=== PATIENT | female | born 1985 | race Caucasian/White ===

== ENCOUNTER 2019-01-16 17:26 | Emergency (ER) | payer MEDICAID ==
[~2019-01-16] VITALS: Ht 172.7 cm; Wt 112.1 kg
[2019-01-16 17:33] VITALS: BP 159/99
[2019-01-16] MEDS ORDERED: HTN MED (17:40)
[2019-01-16] MEDS ORDERED: KETOROLAC 30 MG/1 ML ONE (17:52)
[2019-01-16] MEDS ORDERED: KETOROLAC 30 MG/1 ML IM ONE (18:00)
== END 2019-01-16 18:35 | disposition home or self-care (01) ==
LOC: ED 18:03
DX: M25.531 Pain in right wrist (principal); R20.2 Paresthesia of skin; M19.90 Unspecified osteoarthritis, unspecified site; I10 Essential (primary) hypertension; F17.200 Nicotine dependence, unspecified, uncomplicated
CPT/HCPCS: 29125; 73110; 73130; 96372; 99283; J1885; J7512

== ENCOUNTER 2019-07-16 13:39 | Emergency (ER) | payer MEDICAID ==
[~2019-07-16] VITALS: Ht 172.7 cm; Wt 105.0 kg
[~2019-07-16 13:39] MED LIST: HTN MED
[2019-07-16 13:43] VITALS: BP 171/110
[2019-07-16] MEDS ORDERED: KETOROLAC 30 MG/1 ML IM ONE (14:00)
[2019-07-16] MEDS ORDERED: HYDROmorphone 1 MG/ML, 1ML INJ IM ONE (14:00)
[2019-07-16] MEDS ORDERED: KETOROLAC 60 MG/2 ML ONE (14:05)
[2019-07-16] MEDS ORDERED: HYDROmorphone 1 MG/ML, 1ML INJ ONE (14:05)
[2019-07-16 14:32] LABS: BASOPHILS # (AUTO) 0.03 x10^3/uL (0-0.1); BASOPHILS % (AUTO) 0 % (0-1); EOSINOPHILS # (AUTO) 0.31 x10^3/uL (0-0.4); EOSINOPHILS % (AUTO) 4 % (1-7); LYMPHOCYTES # (AUTO) 2.18 x10^3/uL (1-3.4); LYMPHOCYTES % (AUTO) 30 % (22-44); MD NO; MEAN CORPUSCULAR HEMOGLOBIN 31.4 pg (27.0-34.8); MEAN CORPUSCULAR HGB CONC 33.4 g/dL (32.4-35.8); MEAN CORPUSCULAR VOLUME 94.2 fL (80-100); MEAN PLATELET VOLUME 7.6 fL (7.4-10.4); MONOCYTES # (AUTO) 0.39 x10^3/uL (0.2-0.8); MONOCYTES % (AUTO) 5 % (2-9); NEUTROPHILS # (AUTO) 4.28 x10^3/uL (1.8-6.8); NEUTROPHILS % (AUTO) 60 % (42-75); PLATELET COUNT 309 x10^3/uL (130-400); RED BLOOD COUNT 4.63 x10^6/uL (3.82-5.3); RED CELL DISTRIBUTION WIDTH 12.6 % (9.6-15.2)
--- NOTE | 2019-07-16 14:33 | NUR ---
PT IN [place] AT THIS TIME.
[2019-07-16 14:39] LABS: ALANINE AMINOTRANSFERASE 33 U/L (12-78); ALBUMIN 3.7 g/dL (3.4-5.0); ANION GAP 8 mmol/L (5-15); CALCIUM 9.1 mg/dL (8.5-10.1); CHLORIDE 105 mmol/L (98-107); CREATININE 0.84 mg/dL (0.55-1.02)
[2019-07-16 14:43] LABS: ALKALINE PHOSPHATASE 75 U/L (45-117); BILIRUBIN,TOTAL 0.6 mg/dL (0.2-1.0); TOTAL PROTEIN 7.5 g/dL (6.4-8.2)
[2019-07-16 15:48] LABS: MICROSCOPIC AUTO
[2019-07-16 15:50] LABS: CULTURE INDICATED? NO
== END 2019-07-16 16:13 | disposition home or self-care (01) ==
LOC: ED 15:52
DX: N83.291 Other ovarian cyst, right side (principal); I10 Essential (primary) hypertension
CPT/HCPCS: 36415; 76770; 76830; 80053; 81001; 84702; 85025; 96372; 99284; J1170; J1885

== ENCOUNTER 2019-12-02 13:17 | Emergency (ER) | payer MEDICAID ==
[~2019-12-02] VITALS: Ht 172.7 cm; Wt 126.1 kg
[2019-12-02 13:20] VITALS: BP 173/111
[2019-12-02] MEDS ORDERED: KETOROLAC 30 MG/1 ML ONE (14:25)
[2019-12-02] MEDS ORDERED: KETOROLAC 30 MG/1 ML IM ONE (14:30)
--- NOTE | 2019-12-02 14:31 | NUR ---
TO ANN MARIE VIA [facility]
== END 2019-12-02 16:02 | disposition home or self-care (01) ==
LOC: ED 15:40
DX: S83.412A Sprain of medial collateral ligament of left knee, initial encounter (principal); I10 Essential (primary) hypertension; F17.200 Nicotine dependence, unspecified, uncomplicated; W18.39XA Other fall on same level, initial encounter; Y93.89 Activity, other specified; Y92.89 Other specified places as the place of occurrence of the external cause; Y99.8 Other external cause status
CPT/HCPCS: 29505; 73564; 96372; 99283; J1885

== ENCOUNTER 2020-03-13 13:42 | Emergency (ER) | payer MEDICAID ==
[~2020-03-13] VITALS: Ht 172.7 cm; Wt 126.1 kg
[2020-03-13 13:49] VITALS: BP 168/99
--- NOTE | 2020-03-13 13:57 | NUR ---
PATIENT WALKED BACK FROM TRIAGE WITH CHIEF C/O EYE REDNESS AND DISCHARGE. PATIENT STATES SHE WOKE UP THURSDAY AND HER RIGHT EYE WAS SWOLLEN AND RED, WITH SOME DISCHARGE. PATIENT'S LEFT EYE BECAME RED WITH DISCHARGE. PATIENT C/O SORE THROAT THAT STARTED THIS MORNING. ERMD AT BEDSIDE FOR EVALUATION.
--- NOTE | 2020-03-13 14:31 | NUR ---
Patient given discharge instructions and prescriptions and they have confirmed that they understand the instructions, no questions. Patient ambulatory with steady gait to discharge desk.
== END 2020-03-13 14:33 | disposition home or self-care (01) ==
LOC: ED 14:22
DX: B30.1 Conjunctivitis due to adenovirus (principal); Z20.828 Contact with and (suspected) exposure to other viral communicable diseases; J02.9 Acute pharyngitis, unspecified; I10 Essential (primary) hypertension
CPT/HCPCS: 36415; 87635; 99283